=== PATIENT | male | born 1995 | race Hispanic/Latino ===

== ENCOUNTER 2020-08-30 23:17 | Observation (INO) | payer SELFPAY ==
[2020-08-31 00:25] VITALS: BMI 24.1
[2020-08-31] MEDS ORDERED: Sodium Chloride 0.9% 500 ML IV SCH (04:45)
[2020-08-31] MEDS ORDERED: Ibuprofen 600 MG TAB PO PRN (04:55)
[2020-08-31] MEDS ORDERED: Acetaminophen 500 MG TAB PO PRN (04:55)
[2020-08-31] MEDS ORDERED: Ondansetron ODT 4 MG TAB PO PRN (04:56)
[2020-08-31] MEDS ORDERED: Ondansetron PF 4 MG/2 ML Vial IVP PRN (04:56)
[2020-08-31 06:15] LABS: #Basophils 0.1 thou/uL (0.0-0.2); #Eosinphils 0.1 thou/uL (0.0-0.7); #Lymphocytes 2.5 thou/uL (1.20-3.40); #Monocytes 0.8 thou/uL (0.11-0.59); #Neutrophils 5.2 thou/uL (1.40-6.50); %Basophils 0.6 % (0.0-1.0); %Eosinophils 1.2 % (0.0-10.0); %Lymphocytes 28.5 % (21.0-51.0); %Monocytes 9.6 % (0.0-10.0); %Neutrophils 60.1 % (42.0-75.0); Hemoglobin 14.7 g/dL (14.0-18.0); Mean Corpuscular HGB CONC 34.5 g/dL (32.0-36.0); Mean Corpuscular Hemoglobin 33.6 pg (27.0-31.0); Mean Corpuscular Volume 97.6 fL (78.0-98.0); Mean Platelet Volume 6.8 fL (7.4-10.4); Platelet Count 201 thou/uL (130-400); RBC Distribution Width 11.4 % (11.5-14.5); Red Blood Cell (RBC) Count 4.36 mill/uL (4.70-6.10); White Blood Cell (WBC) Count 8.7 thou/uL (4.8-10.8)
[2020-08-31 06:43] LABS: Anion Gap 11 mmol/L (10-20); BUN (Urea Nitrogen) 9 mg/dL (8.9-20.6); Calc. Creatinine Clearance 147 mL/min (70-130); Calcium 8.4 mg/dL (7.8-10.44); Carbon Dioxide 26 mmol/L (22-29); Chloride 106 mmol/L (98-107); Glucose 89 mg/dL (70-105); Potassium 3.8 mmol/L (3.5-5.1); Sodium 139 mmol/L (136-145)
[2020-08-31 10:05] VITALS: BP 118/52; TEMP 98.4
== END 2020-08-31 12:50 | disposition home or self-care (01) ==
LOC: ONC 08-31 00:16
PROVIDERS: ADMIT Student in an Organized Health Care Education/Training Program; ATTEND Family Medicine
DX: G40.909 Epilepsy, unspecified, not intractable, without status epilepticus (principal); I95.9 Hypotension, unspecified; Z91.14 Patient's other noncompliance with medication regimen; Z79.899 Other long term (current) drug therapy; Z91.041 Radiographic dye allergy status
CPT/HCPCS: 36415; 80048; 85025; G0378

== ENCOUNTER 2022-07-08 17:36 | Emergency (ER) | payer SELFPAY ==
[2022-07-08 18:13] LABS: #Basophils 0.1 thou/uL (0.0-0.2); #Eosinphils 0.1 thou/uL (0.0-0.7); #Lymphocytes 1.2 thou/uL (1.20-3.40); #Monocytes 0.5 thou/uL (0.11-0.59); #Neutrophils 5.6 thou/uL (1.40-6.50); %Basophils 0.8 % (0.0-1.0); %Eosinophils 0.7 % (0.0-10.0); %Lymphocytes 15.7 % (21.0-51.0); %Monocytes 6.4 % (0.0-10.0); %Neutrophils 76.4 % (42.0-75.0); Hemoglobin 14.6 g/dL (14.0-18.0); Mean Corpuscular HGB CONC 33.2 g/dL (32.0-36.0); Mean Corpuscular Hemoglobin 32.9 pg (27.0-31.0); Mean Corpuscular Volume 99.1 fl (78.0-98.0); Platelet Count 211 10x3/uL (130-400); RBC Distribution Width 11.5 % (11.5-14.5); Red Blood Cell (RBC) Count 4.43 mill/uL (4.70-6.10); White Blood Cell (WBC) Count 7.4 10x3/uL (4.8-10.8)
[2022-07-08 18:40] LABS: ALT (SGPT) 15 U/L (8-55); AST (SGOT) 17 U/L (5-34); Albumin 3.9 g/dL (3.5-5.0); Alkaline Phosphatase 66 U/L (40-110); Anion Gap 18 mmol/L (10-20); BUN (Urea Nitrogen) 11 mg/dL (8.9-20.6); Bilirubin, Total 0.2 mg/dL (0.2-1.2); Calc. Creatinine Clearance 0 mL/min (70-130); Calcium 8.6 mg/dL (7.8-10.44); Carbon Dioxide 18 mmol/L (22-29); Chloride 106 mmol/L (98-107); Estimated GFR 102; Globulin 2.6 g/dL (2.4-3.5); Glucose 131 mg/dL (70-105); Potassium 4.1 mmol/L (3.5-5.1); Protein, Total 6.5 g/dL (6.0-8.3); Sodium 138 mmol/L (136-145)
[2022-07-08 21:23] LABS: Dilantin 4.4 ug/mL (10.0-20.0)
[2022-07-08] MEDS ORDERED: Fosphenytoin Sodium 500 mg/10 ml Vial ONE (21:34)
== END 2022-07-08 22:13 | disposition home or self-care (01) ==
LOC: ERS 17:36
DX: R56.9 Unspecified convulsions (principal); F17.210 Nicotine dependence, cigarettes, uncomplicated
CPT/HCPCS: 80053; 80185; 85025; 96365; Q2009

== ENCOUNTER 2022-08-18 16:22 | Emergency (ER) | payer OTHER, SELFPAY ==
[~2022-08-18 16:22] MED LIST: Iopamidol-370 76% 500 ML MDV (1 ML CHARGE) ONE
[2022-08-18] MEDS ORDERED: Boostrix 0.5 ML (Tdap) VIAL (>/=7 yrs of age) ONE (17:30)
== END 2022-08-18 17:55 | disposition home or self-care (01) ==
LOC: ERS 16:22
DX: S00.83XA Contusion of other part of head, initial encounter (principal); S80.212A Abrasion, left knee, initial encounter; S80.811A Abrasion, right lower leg, initial encounter; V89.2XXA Person injured in unspecified motor-vehicle accident, traffic, initial encounter; Z23 Encounter for immunization
CPT/HCPCS: 71260; 74177; 90471; 90715; 93005; G0390

== ENCOUNTER 2025-04-27 17:27 | Emergency (ER) | payer OTHER, SELFPAY ==
[2025-04-27] MEDS ORDERED: Ondansetron PF 4 MG/2 ML Vial ONE (17:57)
[2025-04-27 18:16] LABS: #Basophils 0.03 10x3/uL (0.0-0.2); #Eosinophils 0.11 10x3/uL (0.0-0.7); #Monocytes 0.50 10x3/uL (0.11-0.59); #Neutrophils 4.52 10x3/uL (1.40-6.50); %Basophils 0.4 % (0.0-1.0); %Eosinophils 1.4 % (0.0-10.0); %Lymphocytes 31.4 % (21.0-51.0); %Monocytes 6.5 % (0.0-10.0); %Neutrophils 59.0 % (42.0-75.0); Hematocrit 47.4 % (42.0-52.0); Hemoglobin 16.0 g/dL (14.0-18.0); Mean Corpuscular Hemoglobin 31.0 pg (27.0-31.0); Mean Corpuscular Volume 91.9 fL (78.0-98.0); Platelet Count 210 10x3/uL (130-400); Red Blood Cell (RBC) Count 5.16 mill/uL (4.70-6.10); White Blood Cell (WBC) Count 7.67 10x3/uL (4.8-10.8)
[2025-04-27 18:31] LABS: ALT (SGPT) 43 U/L (Less than 45); AST (SGOT) 29 U/L (11-34); Albumin 4.0 g/dL (3.1-4.5); Alkaline Phosphatase 106 U/L (40-110); Anion Gap 21 mmol/L (10-20); BUN (Urea Nitrogen) 13 mg/dL (8.9-20.6); Bilirubin, Total 0.2 mg/dL (0.3-1.2); Calc. Creatinine Clearance 0 mL/min (70-130); Calcium 8.5 mg/dL (7.8-10.44); Carbon Dioxide 14 mmol/L (22-29); Chloride 106 mmol/L (98-107); Globulin 2.9 g/dL (2.4-3.5); Glucose 148 mg/dL (70-105); Lipase 37 U/L (8-78); Potassium 4.5 mmol/L (3.5-5.1); Sodium 136 mmol/L (136-145)
== END 2025-04-27 18:44 | disposition home or self-care (01) ==
LOC: ERS 17:27
DX: S06.0X0A Concussion without loss of consciousness, initial encounter (principal); G40.909 Epilepsy, unspecified, not intractable, without status epilepticus; F17.290 Nicotine dependence, other tobacco product, uncomplicated; V89.2XXA Person injured in unspecified motor-vehicle accident, traffic, initial encounter
CPT/HCPCS: 70450; 71250; 72125; 74177; 80053; 80307; 83690; 85025; 96374; G0390; J2405